=== PATIENT | male | born 1990 ===

== ENCOUNTER 2016-12-31 12:46 | Emergency (ER) | payer OTHER ==
[2016-12-31 13:14] VITALS: RESP 18
--- NOTE | 2016-12-31 15:00 | C.PDOC ---
History Of Present Illness Patient is a 26 year old male who presents to the emergency department complaining of lower back pain associated with tingling on the right leg onset today. 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 He reports he lifted something heavy today when he felt a sudden pain on the lower back and now feels a tingling on the right leg. He denies any abdominal pain, fever, numbness, weakness, bowel or bladder incontinence. No further medical complaints. PMD: None provided. Time Seen by Provider: 12/31/16 13:50 Chief Complaint (Nursing): Back Pain History Per: Patient History/Exam Limitations: no limitations Onset/Duration Of Symptoms: Days (x1) Current Symptoms Are (Timing): Still Present Associated Symptoms: denies: Incontinence (bladder or bowel) Past Medical History Reviewed: Historical Data, Nursing Documentation, Vital Signs Vital Signs: Last Vital Signs Temp 97.9 F 12/31/16 15:22 Pulse 81 12/31/16 15:22 Resp 18 12/31/16 15:22 BP 139/84 12/31/16 15:22 Pulse Ox 97 12/31/16 15:26 Family History: States: Unknown Family Hx - Social History Hx Tobacco Use: No Hx Alcohol Use: No Hx Substance Use: No Review Of Systems Except As Marked, All Systems Reviewed And Found Negative. Constitutional: Negative for: Fever Gastrointestinal: Negative for: Abdominal Pain Genitourinary: Negative for: Incontinence (bladder or bowel) Musculoskeletal: Positive for: Back Pain (lower back), Leg Pain (right leg tingling) Neurological: Negative for: Weakness, Numbness Physical Exam - Physical Exam Appears: Well, No Acute Distress Skin: Normal Color, Warm, Dry Eye(s): bilateral: Normal Inspection Neck: Normal, Normal ROM, Supple Respiratory: Normal Breath Sounds Extremity: Normal ROM, No Pedal Edema, No Deformity, No Swelling Neurological/Psych: Normal Speech, Normal Motor, Normal Sensation ED Course And Treatment O2 Sat by Pulse Oximetry: 97 (RA) Pulse Ox Interpretation: Normal Medical Decision Making Medical Decision Making: On re-eval, the patient reports improvement of symptoms. Lungs are CTA, heart is RRR, ambulatory in the ED with steady. Abdomen is soft, non-tender and the patient is tolerating PO well. Follow up with the medical doctor/clinic within 1-2 days. Return if worsened. Disposition - Disposition Referrals: [facility] [Outside] Kai Mcclure MD [Non-Staff] - Disposition: HOME/ ROUTINE Disposition Time: 15:21 Condition: GOOD Additional Instructions: Follow up with the medical doctor/clinic within 1-2 days. Return if worsened. Prescriptions: Cyclobenzaprine [Cyclobenzaprine HCl] 10 mg PO BID #14 tab Naproxen [Naprosyn] 500 mg PO BID #20 tab Instructions: Acute Low Back Pain (ED), Back Exercises (ED) Forms: [employer] (Honduran), Work Excuse - Clinical Impression Clinical Impression: Low back pain - Scribe Statement The provider has reviewed the documentation as recorded by the Scribe Henry Bingham All medical record entries made by the Karlaibe were at my direction and personally dictated by me. I have reviewed the chart and agree that the record accurately reflects my personal performance of the history, physical exam, medical decision making, and the department course for this patient. I have also personally directed, reviewed, and agree with the discharge instructions and disposition.
[2016-12-31 15:23] VITALS: BP 139/84; PULSE 81; TEMP 97.9
[2016-12-31 15:26] VITALS: O2SAT 97
--- NOTE | 2016-12-31 20:01 | RAD ---
PROCEDURE: Radiographs of the Lumbar Spine. HISTORY: low back pain, COMPARISON: None available. FINDINGS: BONES: Alignment appears satisfactory. No listhesis. No acute displaced fracture identified. DISC SPACES: Unremarkable. OTHER FINDINGS: None. IMPRESSION: No acute displaced fracture or subluxation identified.
== END 2016-12-31 15:40 | disposition home or self-care (01) ==
LOC: C.ER 12:46
DX: M54.5 Low back pain (principal)
CPT/HCPCS: 72100; 96372; 99283; J1885